=== PATIENT | female | born 1970 | race Caucasian/White ===

== ENCOUNTER 2018-05-11 13:08 | Emergency (ER) | payer BC ==
[~2018-05-11] VITALS: Ht 170.2 cm; Wt 107.0 kg
[~2018-05-11 13:08] MED LIST: ALBUTEROL2.5 MG/3 M; ALVESCO; ALVESCO6.1 G1 IH; ATROVENT 00.5 MG/2.5 IH; B-COMPLEX-VITA1 EACH PO; CLINDAMYCIN HC300 MG PO; CYANOCOBAL1000 MCG/2 IM; EPIPEN ADU0.3 MG/0.3 IM; ERGOCALCIF50000 UNIT; ERGOCALCIF50000 UNIT PO; FORADIL AEROLI12 MCG; LOSARTAN POTASS50 MG; MAGNESIUM OXID200 MG PO; MONTELUKAST SOD10 MG; MOTRIN400 MG PO; NATTOKINASE PO; NORVASC5 MG PO; POTASSIUM CHLOR8 ME2 PO; PROTONIX40 MG; PROVENTIL,2.5 MG/3 M IH; PULMICORT0.5 MG/21; TURMERIC500 M1 PO; TYLENOL EXTRA500 MG PO; VENTOLIN HFA18 GM; VENTOLIN HFA18 GM IH; XYZAL5 MG PO; ZANTAC150 MG PO; [UNRECOGNIZED DRUG - OTHER] PO; [UNRECOGNIZED DRUG - REMARK] PO
[2018-05-11 14:39] VITALS: BP 141/75
== END 2018-05-11 14:41 | disposition home or self-care (01) ==
LOC: RME 13:08 → EME 13:08 → RME 14:41
DX: S63.502A Unspecified sprain of left wrist, initial encounter (principal); S60.212A Contusion of left wrist, initial encounter; S60.222A Contusion of left hand, initial encounter; M25.551 Pain in right hip; W01.0XXA Fall on same level from slipping, tripping and stumbling without subsequent striking against object, initial encounter; Y92.008 Other place in unspecified non-institutional (private) residence as the place of occurrence of the external cause; Z88.5 Allergy status to narcotic agent; Z88.0 Allergy status to penicillin; Z88.8 Allergy status to other drugs, medicaments and biological substances
CPT/HCPCS: 73110; 73130; 73502; 99281; 99283